=== PATIENT | female | born 2000 | race Caucasian/White ===

== ENCOUNTER 2025-04-17 00:36 | Inpatient (IN) ==
[2025-04-17] MEDS: SODIUM CHLORIDE 0.9% 1,000 ML IV ONE ×2 (01:20→01:36)
[2025-04-17 01:32] LABS: Hematocrit (blood only) 37.6 % (37.0-47.0); Hemoglobin 12.2 g/dl (12.0-16.0); Immature Granulocytes # (auto) 0.07 K/uL (0.01-0.20); Immature Granulocytes % (auto) 0.5 %; Mean Corpuscular Hemoglobin 26.2 pg (25.0-34.0); Mean Corpuscular Volume 80.9 fL (80.0-100.0); Platelet Count 335 K/uL (130-400); RDW Standard Deviation 36.7 fL (36.4-46.3); Red Blood Count 4.65 M/uL (4.20-5.40); White Blood Count 14.87 K/ul (4.8-10.8)
[2025-04-17 01:36] LABS: Appearance Urine Clear (Clear); Bacteria Urine Automated None Seen (None Seen); Cast Urine Automated 0-2 /lpf (0-2); Epithelial Cell Urine Auto 0-2 /hpf (0-2); Glucose Urine UA Negative (Negative); RBC Urine Automated 0-2 /hpf (0-2); WBC Urine Automated 0-5 /hpf (0-5)
[2025-04-17] MEDS: CEFEPIME 2000MG 2,000 MG/20 ML SYR IV STA (01:36)
[2025-04-17 01:51] LABS: Alanine Aminotransferase 20.0 U/L (7-52); Alkaline Phosphatase 132.0 U/L (34-104); Anion Gap 12.0 (3-11); Bilirubin,Total 0.7 mg/dl (0.2-1.0); Blood Urea Nitrogen 17.0 mg/dl (6-23); Calcium 9.0 mg/dl (8.6-10.3); Carbon Dioxide 22.0 mmol/L (21-32); Chloride 102.0 mmol/L (98-107); Creatinine Clr Calc Pharmacy 115.7 ml/min; Glucose 117.0 mg/dl (70-99(Fasting)); Magnesium 1.9 mg/dl (1.7-2.4); Potassium 4.0 mmol/L (3.5-5.1); Sodium 136.0 mmol/L (136-145); Total Protein 7.3 gm/dl (6.0-8.3)
--- NOTE | 2025-04-17 02:03 | XRay Report ---
EXAM: XR chest 1V portable CLINICAL HISTORY: Sepsis. TECHNIQUE: An X-ray image of the chest is obtained in AP projection. COMPARISON: No prior studies are available for comparison. FINDINGS: Pulmonary Parenchyma: Lungs are clear bilaterally. No evidence of consolidation, collapse, or focal opacities. No pulmonary nodules are identified. No evidence of pleural effusion or pleural thickening. Heart and Mediastinum: Heart size and shape are normal. No mediastinal widening or masses. No hilar or mediastinal lymphadenopathy. Bony Thorax: Bony thorax appears intact without fractures or deformities. Soft Tissues: Soft tissues overlying the chest wall are unremarkable. IMPRESSION: Normal chest X-ray. No acute cardiopulmonary abnormalities are identified. Electronically signed by Maxwell Koch 04-17-2025 02:03 AM
--- NOTE | 2025-04-17 02:06 | Emergency Department Note ---
Impression & Plan Sepsis, Retained products of conception after delivery without hemorrhage to the OR with [facility] ED Provider Note NAME: JORGE MELGAR AGE: 24 SEX: Female INFORMANT: Patient ED PROVIDER(S): Khushbu Arango DO CHIEF COMPLAINT: fever and bodyaches PLAN: Disposition: To the OR with Dr. Luis MEDICAL DECISION MAKING: This is a 24-year-old female patient who delivered a baby through her vaginal delivery on April 05 at [facility]. the baby had known transposition of great vessels diagnosed prenatally and the mother was preeclamptic. She has had a very normal course but developed a fever tonight and was directed to the hospital for evaluation by her gift shop assistant. Patient describes having some pressure in her vagina along with itchiness as she describes it over the past 3 to 4 days. She denies any cough, shortness of breath, urinary symptoms or abdominal pain. She denies any vaginal tear or episiotomy. Patient denies any pain or redness in her breasts. She is breast-feeding. She describes her vaginal discharge/bleeding as almost completely resolved at this point. Patient had a high fever at home for which she took Tylenol. A septic protocol was performed and 2 large-bore IVs were initiated. The patient was bolused with 2 L of normal saline solution as she was significantly tachycardic and appeared dehydrated. Laboratory studies revealed a white blood cell count of 14.8. H&H were stable. Glucose was 117. Lactate was 2.1 and procalcitonin was normal. Urinalysis revealed trace blood and 1+ leukocyte Estrace but was otherwise unremarkable. Chest x-ray was normal and upper respiratory bio fire testing was negative. The patient was prophylactically given IV cefepime after blood cultures were obtained. The patient's abdomen was reexamined and she remained pain-free but with concern for sepsis, she was ordered to have an ultrasound to look for retained products of conception. I also ordered a D-dimer to rule out the possibility of PE/amniotic fluid embolism as a source of her significant tachycardia and fever. This was quite elevated. The patient went for CT scan of her chest and the ultrasound. The CT was negative but the ultrasound did confirm possible retained products of conception. At that point, the patient was given IV gentamicin and IV clindamycin. Patient was noted to be group B strep negative at the time of . Patient's lactate was repeated and had come down to 1.8. Her heart rate had come down to 104. She was hemodynamically stable. I discussed the case with [facility] and they will evaluate the patient and take her to the OR. Care/management discussed with: warehouse operations manager and [facility] Triage Nursing notes: reviewed and agree With them. Vital Signs: reviewed and remarkable for tachycardia Chronic Medical/Social Conditions affecting care: -2 weeks from a vaginal delivery. Differential Diagnosis: sepsis, UTI, mastitis, retained products of conception, endometritis, amniotic fluid embolism Diagnostics, independently interpreted by me: ECG: sinus tachycardia at a rate of [address] segment elevation or signs of ischemia. Cardiac Monitoring: Sinus tachycardia at a rate of 125 Imaging studies: portable chest x-ray: No acute pulmonary infiltrates or opacities as per my independent interpretation. CTA of the chest: As per [facility] Ultrasound of the pelvis: As per [facility] HPI: 24 year old Female arrives for evaluation of Fever. patient who delivered a baby through her vaginal delivery on April 05 at [facility]. the baby had known transposition of great vessels diagnosed prenatally and the mother was preeclamptic. She has had a very normal course but developed a fever tonight and was directed to the hospital for evaluation by her gift shop assistant. Patient describes having some pressure in her vagina along with itchiness as she describes it over the past 3 to 4 days. She denies any cough, shortness of breath, urinary symptoms or abdominal pain. PAST MEDICAL HISTORY: -2 weeks - history of preeclampsia SOCIAL HISTORY: lives with her and 2 children, denies drug or alcohol use HOME MEDICATIONS: see list ALLERGIES: none VITALS: See Below PHYSICAL EXAMINATION: HEENT: Head - normocephalic and atraumatic. Pupils are equal, round, and reactive to light. Extraocular eye muscles are intact, and sclera are anicteric. Nose - Dry nasal mucosa without discharge. Mouth - extremely dry buccal mucosa. Oropharynx is nonerythematous and there is no tonsillar exudate or edema noted. Neck: Supple; no cervical lymphadenopathy or nuchal rigidity Heart: tachycardic rate and regular rhythm. There is a normal S1 and S2 with no murmurs, clicks, or gallops appreciated. Lungs: Clear to auscultation bilaterally with no wheezes, rales, or rhonchi. Abdomen: Soft, completely nontender, nondistended, with good bowel sounds. There are no palpable pulsatile masses or hepatosplenomegaly. There is no guarding, rigidity, or rebound noted. Extremities: No evidence of cyanosis, clubbing, or edema. There are easily palpable peripheral pulses. Skin: hot and dry with poor turgor and no rashes. Emergency Department treatment: quality assurance monitor, IV crystalloid-30 mL/kg, IV cefepime, IV gentamicin, IV clindamycin, IV normal saline drip Emergency Department course: The patient was evaluated in room B-8. A complete history and physical was performed. A septic protocol was performed. An order was placed for continuous cardiac monitoring. Patient was in a sinus tachycardia at a rate of 125. Twelve-lead EKG was obtained as described above. Portable chest x-ray was performed. Urine specimen was obtained. Patient was bolused with 2 L of normal saline solution. Once blood cultures were obtained. The patient was given a dose of IV cefepime. Patient went for pelvic ultrasound. Patient's abdomen was reexamined upon returning from radiology and she remains pain-free. Upon returning from radiology, additional laboratory studies were drawn and she then went for CT scan of her chest. Repeat lactic acid was obtained. Results of the ultrasound showed evidence of retained products of conception. The patient was then given IV gentamicin and clindamycin. I discussed the case with the [facility] and they will take the patient to the OR. I have personally spent greater than 95 minutes of critical care time in the direct management of this patient. This includes bedside care, interpretation of diagnostic studies, and testing, discussion with consultants, patient, and family members, and other required patient management activities. This 95 minutes is in excess of all separately billable procedures. Past Med/Surg History Problem List (Updated 04/17/25 @ 16:28 by Khushbu Arango DO) Retained products of conception after delivery without hemorrhage (Acute) Sepsis (Acute) Retained products of conception after delivery without hemorrhage Hx of pre-eclampsia in prior , currently Not immune to hepatitis B virus Early stage of Encounter for anatomic survey Supervision of normal intrauterine in multigravida Medical History History of pre-eclampsia Surgical History No pertinent past surgical history Family History Denies family history of Ovarian cancer Breast cancer Colorectal cancer Social History (Updated 09/21/24 @ 09:59 by Maria D Durham) Smoking Status: Never smoker Second Hand Exposure: No; Do You Dip or Chew Tobacco: No; Hx Alcohol Use: No Hx Substance Use: No marital status: marital status details: Nav [phone] Current Living Situation: Spouse Current Living Situation Comment: lives with spouse, daughter, 1 dog. current occupational status: employed current occupation: Home Health Nurse Allergies Allergies Allergy/AdvReac Type Severity Reaction Status Date / Time No Known Allergies Allergy Verified 04/17/25 01:10 Home Meds Home Medications Medication Instructions Recorded Confirmed docusate sodium 100 mg capsule 100 mg PO DAILY 04/17/25 04/17/25 (Colace) famotidine 20 mg tablet 20 mg PO BID PRN 04/17/25 04/17/25 HEARTBURN/INDIGESTION ibuprofen 125 mg-acetaminophen 250 1 tab PO DIRECTED PRN Pain 04/17/25 04/17/25 mg tablet (Advil Dual Action) vit no.95-ferrous 1 tab PO DAILY 04/17/25 04/17/25 fumarate 28 mg-folic acid 800 mcg tablet () Results & Data (ED) Vital Signs Vital Signs - 24 hr 04/17/25 00:42 04/17/25 00:58 04/17/25 01:03 Temperature 36.8 C Temperature Source Oral Pulse Rate 144 H 125 H 131 H Pulse Rate [Apical] Pulse Rate from SpO2 Sensor Pulse Rhythm [Apical] Pulse Strength [Apical] Respiratory Rate 19 18 Respiratory Effort / Characteristics Non-Labored Spontaneous Respiratory Depth Normal Respiratory Pattern Blood Pressure 129/83 Blood Pressure [Right Arm] Blood Pressure Mean 98 Blood Pressure Mean [Right Arm] Blood Pressure Position [Right Arm] Pulse Oximetry 99 Oxygen Delivery Method Room Air Sepsis Recent Fever Within 48 Hours Yes Sepsis New/Unexplained Change in Mental Status N/A Sepsis Action Taken by Nursing No Action Required 04/17/25 01:04 04/17/25 01:33 04/17/25 01:45 Temperature Temperature Source Pulse Rate 116 H 131 H Pulse Rate [Apical] 127 H Pulse Rate from SpO2 Sensor Pulse Rhythm [Apical] Regular Pulse Strength [Apical] Normal Respiratory Rate 17 19 15 Respiratory Effort / Characteristics Non-Labored Spontaneous Respiratory Depth Normal Respiratory Pattern Regular Blood Pressure Blood Pressure [Right Arm] 135/95 Blood Pressure Mean Blood Pressure Mean [Right Arm] 108 Blood Pressure Position [Right Arm] Sitting Pulse Oximetry 96 Oxygen Delivery Method Room Air Sepsis Recent Fever Within 48 Hours Sepsis New/Unexplained Change in Mental Status Sepsis Action Taken by Nursing 04/17/25 02:19 04/17/25 02:24 04/17/25 02:30 Temperature Temperature Source Pulse Rate 105 H Pulse Rate [Apical] 121 H Pulse Rate from SpO2 Sensor 107 H Pulse Rhythm [Apical] Regular Pulse Strength [Apical] Normal Respiratory Rate 16 18 Respiratory Effort / Characteristics Non-Labored Spontaneous Respiratory Depth Normal Respiratory Pattern Regular Blood Pressure 135/91 Blood Pressure [Right Arm] 135/91 Blood Pressure Mean 100 Blood Pressure Mean [Right Arm] 105 Blood Pressure Position [Right Arm] Sitting Pulse Oximetry 97 98 Oxygen Delivery Method Room Air Sepsis Recent Fever Within 48 Hours Sepsis New/Unexplained Change in Mental Status Sepsis Action Taken by Nursing 04/17/25 02:30 04/17/25 02:30 04/17/25 02:30 Temperature Temperature Source Pulse Rate Pulse Rate [Apical] Pulse Rate from SpO2 Sensor Pulse Rhythm [Apical] Pulse Strength [Apical] Respiratory Rate Respiratory Effort / Characteristics Respiratory Depth Respiratory Pattern Blood Pressure 119/94 119/94 119/94 Blood Pressure [Right Arm] Blood Pressure Mean 109 109 109 Blood Pressure Mean [Right Arm] Blood Pressure Position [Right Arm] Pulse Oximetry Oxygen Delivery Method Sepsis Recent Fever Within 48 Hours Sepsis New/Unexplained Change in Mental Status Sepsis Action Taken by Nursing 04/17/25 02:30 04/17/25 03:00 04/17/25 03:00 Temperature Temperature Source Pulse Rate 116 H Pulse Rate [Apical] Pulse Rate from SpO2 Sensor 122 H Pulse Rhythm [Apical] Pulse Strength [Apical] Respiratory Rate 18 Respiratory Effort / Characteristics Respiratory Depth Respiratory Pattern Blood Pressure 119/94 136/87 Blood Pressure [Right Arm] Blood Pressure Mean 109 96 Blood Pressure Mean [Right Arm] Blood Pressure Position [Right Arm] Pulse Oximetry 96 Oxygen Delivery Method Sepsis Recent Fever Within 48 Hours Sepsis New/Unexplained Change in Mental Status Sepsis Action Taken by Nursing 04/17/25 03:00 04/17/25 03:30 04/17/25 03:40 Temperature Temperature Source Pulse Rate 120 H Pulse Rate [Apical] 109 H Pulse Rate from SpO2 Sensor 120 H Pulse Rhythm [Apical] Regular Pulse Strength [Apical] Respiratory Rate 17 18 Respiratory Effort / Characteristics Non-Labored Spontaneous Respiratory Depth Normal Respiratory Pattern Regular Blood Pressure 136/87 Blood Pressure [Right Arm] 136/90 Blood Pressure Mean 96 Blood Pressure Mean [Right Arm] 105 Blood Pressure Position [Right Arm] Pulse Oximetry 97 97 Oxygen Delivery Method Room Air Sepsis Recent Fever Within 48 Hours Sepsis New/Unexplained Change in Mental Status Sepsis Action Taken by Nursing 04/17/25 03:59 04/17/25 03:59 04/17/25 03:59 Temperature Temperature Source Pulse Rate Pulse Rate [Apical] Pulse Rate from SpO2 Sensor Pulse Rhythm [Apical] Pulse Strength [Apical] Respiratory Rate Respiratory Effort / Characteristics Respiratory Depth Respiratory Pattern Blood Pressure 143/87 H 143/87 H 143/87 H Blood Pressure [Right Arm] Blood Pressure Mean 105 105 105 Blood Pressure Mean [Right Arm] Blood Pressure Position [Right Arm] Pulse Oximetry Oxygen Delivery Method Sepsis Recent Fever Within 48 Hours Sepsis New/Unexplained Change in Mental Status Sepsis Action Taken by Nursing 04/17/25 04:03 04/17/25 04:15 04/17/25 04:45 Temperature Temperature Source Pulse Rate 117 H Pulse Rate [Apical] Pulse Rate from SpO2 Sensor 116 H 98 H Pulse Rhythm [Apical] Pulse Strength [Apical] Respiratory Rate 13 Respiratory Effort / Characteristics Respiratory Depth Respiratory Pattern Blood Pressure 129/80 Blood Pressure [Right Arm] Blood Pressure Mean 93 Blood Pressure Mean [Right Arm] Blood Pressure Position [Right Arm] Pulse Oximetry 97 97 Oxygen Delivery Method Sepsis Recent Fever Within 48 Hours Sepsis New/Unexplained Change in Mental Status Sepsis Action Taken by Nursing 04/17/25 04:55 04/17/25 04:55 04/17/25 04:58 Temperature Temperature Source Pulse Rate 84 Pulse Rate [Apical] Pulse Rate from SpO2 Sensor Pulse Rhythm [Apical] Pulse Strength [Apical] Respiratory Rate Respiratory Effort / Characteristics Respiratory Depth Respiratory Pattern Blood Pressure 127/77 127/77 Blood Pressure [Right Arm] Blood Pressure Mean 91 91 Blood Pressure Mean [Right Arm] Blood Pressure Position [Right Arm] Pulse Oximetry Oxygen Delivery Method Sepsis Recent Fever Within 48 Hours Sepsis New/Unexplained Change in Mental Status Sepsis Action Taken by Nursing 04/17/25 05:00 04/17/25 05:00 04/17/25 05:00 Temperature Temperature Source Pulse Rate 109 H Pulse Rate [Apical] Pulse Rate from SpO2 Sensor 110 H Pulse Rhythm [Apical] Pulse Strength [Apical] Respiratory Rate 15 Respiratory Effort / Characteristics Non-Labored Respiratory Depth Normal Respiratory Pattern Blood Pressure 143/86 H Blood Pressure [Right Arm] Blood Pressure Mean 103 Blood Pressure Mean [Right Arm] Blood Pressure Position [Right Arm] Pulse Oximetry 98 Oxygen Delivery Method Room Air Sepsis Recent Fever Within 48 Hours Sepsis New/Unexplained Change in Mental Status Sepsis Action Taken by Nursing 04/17/25 05:00 04/17/25 05:30 04/17/25 05:30 Temperature Temperature Source Pulse Rate 97 H Pulse Rate [Apical] Pulse Rate from SpO2 Sensor Pulse Rhythm [Apical] Pulse Strength [Apical] Respiratory Rate 13 Respiratory Effort / Characteristics Respiratory Depth Respiratory Pattern Blood Pressure 143/86 H 122/76 Blood Pressure [Right Arm] Blood Pressure Mean 103 93 Blood Pressure Mean [Right Arm] Blood Pressure Position [Right Arm] Pulse Oximetry Oxygen Delivery Method Sepsis Recent Fever Within 48 Hours Sepsis New/Unexplained Change in Mental Status Sepsis Action Taken by Nursing 04/17/25 05:58 Temperature Temperature Source Pulse Rate 98 H Pulse Rate [Apical] Pulse Rate from SpO2 Sensor Pulse Rhythm [Apical] Pulse Strength [Apical] Respiratory Rate 18 Respiratory Effort / Characteristics Respiratory Depth Respiratory Pattern Blood Pressure 122/76 Blood Pressure [Right Arm] Blood Pressure Mean Blood Pressure Mean [Right Arm] Blood Pressure Position [Right Arm] Pulse Oximetry 98 Oxygen Delivery Method Room Air Sepsis Recent Fever Within 48 Hours Sepsis New/Unexplained Change in Mental Status Sepsis Action Taken by Nursing Laboratory Data 04/17/25 01:00 04/17/25 01:00 Lab Results 04/17/25 04/17/25 04/17/25 Range/Units 00:55 01:00 01:03 WBC 14.87 H (4.8-10.8) K/ul RBC 4.65 (4.20-5.40) M/uL Hgb 12.2 (12.0-16.0) g/dl Hct 37.6 (37.0-47.0) % MCV 80.9 (80.0-100.0) fL MCH 26.2 (25.0-34.0) pg MCHC 32.4 (32.0-36.0) g/dL RDW Std Deviation 36.7 (36.4-46.3) fL RDW Coeff of Ivett 12.7 (11.5-14.5) % Plt Count 335 (130-400) K/uL MPV 9.7 (9.4-12.4) fL Immature Gran % (Auto) 0.5 % Neut % (Auto) 84.9 % Lymph % (Auto) 9.0 % Meagher % (Auto) 5.3 % Eos % (Auto) 0.1 % Baso % (Auto) 0.2 % Neut # (Auto) 12.63 H (1.40-6.50) K/uL Lymph # (Auto) 1.34 (1.20-3.40) K/uL Meagher # (Auto) 0.79 H (0.11-0.59) K/uL Eos # (Auto) 0.01 (0.00-0.50) K/uL Baso # (Auto) 0.03 (0.00-0.20) K/uL Immature Gran # (Auto) 0.07 (0.01-0.20) K/uL D-Dimer 1740 H* (0-500) ug/L FEU Sodium 136 (136-145) mmol/L Potassium 4.0 (3.5-5.1) mmol/L Chloride 102 (98-107) mmol/L Carbon Dioxide 22 (21-32) mmol/L Anion Gap 12 H (3-11) BUN 17 (6-23) mg/dl Creatinine 0.75 (0.6-1.2) mg/dl Est Cr Clr Drug Dosing 115.7 ml/min eGFR 113.24 BUN/Creatinine Ratio 22.7 H (10-20) Glucose 117 H (70-99(Fasting)) mg/dl Lactate 2.1 H* (0.4-2.0) mmol/L Calcium 9.0 (8.6-10.3) mg/dl Magnesium 1.9 (1.7-2.4) mg/dl Total Bilirubin 0.7 (0.2-1.0) mg/dl Direct Bilirubin 0.1 (0-0.2) mg/dl AST 15 (13-39) U/L ALT 20 (7-52) U/L Alkaline Phosphatase 132 H (34-104) U/L Troponin I High Sens 3.3 (0-14) pg/ml Total Protein 7.3 (6.0-8.3) gm/dl Albumin 4.0 (3.4-5.0) gm/dl Procalcitonin 0.05 (0-0.5) ng/ml Urine Color Yellow Urine Appearance Clear (Clear) Urine pH 7.0 (4.5-7.5) Ur Specific [place] 1.016 (1.000-1.030) Urine Protein Negative (Negative) Urine Glucose (UA) Negative (Negative) Urine Ketones Negative (Negative) Urine Blood Trace H (Negative) Urine Nitrite Negative (Negative) Urine Bilirubin Negative (Negative) Urine Urobilinogen Negative (Negative) Ur Leukocyte Esterase 1+ H (Negative) Urine WBC (Auto) 0-5 (0-5) /hpf Urine RBC (Auto) 0-2 (0-2) /hpf U Hyaline Cast (Auto) 0-2 (0-2) /lpf U Epithel Cells (Auto) 0-2 (0-2) /hpf Urine Bacteria (Auto) None Seen (None Seen) Urine Comment Adenovirus (PCR) (NotDetected) B. pertussis DNA (PCR) (NotDetected) B.parapertussis DNA PCR (NotDetected) C. pneumoniae DNA (PCR) (NotDetected) Coronavirus OC43 (PCR) (NotDetected) Coronavirus HKU1 (PCR) (NotDetected) Coronavirus 229E (PCR) (NotDetected) SARS-CoV-2 (PCR) (NotDetected) Coronavirus NL63 (PCR) (NotDetected) Human Metapneumovir PCR (NotDetected) Influenza Type A (PCR) (NotDetected) Influenza Type B (PCR) (NotDetected) M. pneumoniae (PCR) (NotDetected) Parainfluenza 1 (PCR) (NotDetected) Parainfluenza 2 (PCR) (NotDetected) Parainfluenza 3 (PCR) (NotDetected) Parainfluenza 4 (PCR) (NotDetected) RSV (PCR) (NotDetected) Entero/Rhino (PCR) (NotDetected) 04/17/25 04/17/25 Range/Units 01:30 03:58 WBC (4.8-10.8) K/ul RBC (4.20-5.40) M/uL Hgb (12.0-16.0) g/dl Hct (37.0-47.0) % MCV (80.0-100.0) fL MCH (25.0-34.0) pg MCHC (32.0-36.0) g/dL RDW Std Deviation (36.4-46.3) fL RDW Coeff of Ivett (11.5-14.5) % Plt Count (130-400) K/uL MPV (9.4-12.4) fL Immature Gran % (Auto) % Neut % (Auto) % Lymph % (Auto) % Meagher % (Auto) % Eos % (Auto) % Baso % (Auto) % Neut # (Auto) (1.40-6.50) K/uL Lymph # (Auto) (1.20-3.40) K/uL Meagher # (Auto) (0.11-0.59) K/uL Eos # (Auto) (0.00-0.50) K/uL Baso # (Auto) (0.00-0.20) K/uL Immature Gran # (Auto) (0.01-0.20) K/uL D-Dimer (0-500) ug/L FEU Sodium (136-145) mmol/L Potassium (3.5-5.1) mmol/L Chloride (98-107) mmol/L Carbon Dioxide (21-32) mmol/L Anion Gap (3-11) BUN (6-23) mg/dl Creatinine (0.6-1.2) mg/dl Est Cr Clr Drug Dosing ml/min eGFR BUN/Creatinine Ratio (10-20) Glucose (70-99(Fasting)) mg/dl Lactate 1.8 (0.4-2.0) mmol/L Calcium (8.6-10.3) mg/dl Magnesium (1.7-2.4) mg/dl Total Bilirubin (0.2-1.0) mg/dl Direct Bilirubin (0-0.2) mg/dl AST (13-39) U/L ALT (7-52) U/L Alkaline Phosphatase (34-104) U/L Troponin I High Sens (0-14) pg/ml Total Protein (6.0-8.3) gm/dl Albumin (3.4-5.0) gm/dl Procalcitonin (0-0.5) ng/ml Urine Color Urine Appearance (Clear) Urine pH (4.5-7.5) Ur Specific [place] (1.000-1.030) Urine Protein (Negative) Urine Glucose (UA) (Negative) Urine Ketones (Negative) Urine Blood (Negative) Urine Nitrite (Negative) Urine Bilirubin (Negative) Urine Urobilinogen (Negative) Ur Leukocyte Esterase (Negative) Urine WBC (Auto) (0-5) /hpf Urine RBC (Auto) (0-2) /hpf U Hyaline Cast (Auto) (0-2) /lpf U Epithel Cells (Auto) (0-2) /hpf Urine Bacteria (Auto) (None Seen) Urine Comment Adenovirus (PCR) Not Detected (NotDetected) B. pertussis DNA (PCR) Not Detected (NotDetected) B.parapertussis DNA PCR Not Detected (NotDetected) C. pneumoniae DNA (PCR) Not Detected (NotDetected) Coronavirus OC43 (PCR) Not Detected (NotDetected) Coronavirus HKU1 (PCR) Not Detected (NotDetected) Coronavirus 229E (PCR) Not Detected (NotDetected) SARS-CoV-2 (PCR) Not Detected (NotDetected) Coronavirus NL63 (PCR) Not Detected (NotDetected) Human Metapneumovir PCR Not Detected (NotDetected) Influenza Type A (PCR) Not Detected (NotDetected) Influenza Type B (PCR) Not Detected (NotDetected) M. pneumoniae (PCR) Not Detected (NotDetected) Parainfluenza 1 (PCR) Not Detected (NotDetected) Parainfluenza 2 (PCR) Not Detected (NotDetected) Parainfluenza 3 (PCR) Not Detected (NotDetected) Parainfluenza 4 (PCR) Not Detected (NotDetected) RSV (PCR) Not Detected (NotDetected) Entero/Rhino (PCR) Not Detected (NotDetected) Administered Medications Acetaminophen (Acetaminophen 325 Mg Tab) 650 mg PO Q4H PRN PRN Reason: Pain or Fever Stop: 05/17/25 06:46 Last Admin: 04/17/25 15:10 Dose: 650 mg Documented By: SANDRA Clindamycin Phosphate (Cleocin/D5w) 900 mg in 50 mls @ 100 mls/hr IV Q8H VINCENZO; Protocol Stop: 04/27/25 13:29 Last Admin: 04/17/25 13:43 Dose: 100 mls/hr Documented By: LUIS FELIPE Ampicillin Sodium 2,000 mg/ (Sodium Chloride) 100 mls @ 200 mls/hr IV Q6H VINCENZO; Protocol Stop: 04/27/25 08:59 Last Admin: 04/17/25 15:10 Dose: 200 mls/hr Documented By: Infusion: 04/17/25 10:02 Dose: Infused Documented By: Admin: 04/17/25 09:32 Dose: 200 mls/hr Documented By: BURT Discontinued Medications Sodium Chloride (Nss) 1,000 mls @ 999 mls/hr IV .Q1H1M ONE Stop: 04/17/25 02:17 Last Infusion: 04/17/25 04:40 Dose: Infused Documented By: Admin: 04/17/25 01:20 Dose: 999 mls/hr Documented By: MALCOLM Cefepime HCl (Maxipime 2000mg) 2,000 mg in 20 mls @ 5 mls/min IV NOW STA; Protocol Stop: 04/17/25 01:34 Last Admin: 04/17/25 01:36 Dose: 5 mls/min Documented By: MALCOLM Sodium Chloride (Nss) 1,000 mls @ 999 mls/hr IV .Q1H1M ONE Stop: 04/17/25 02:32 Last Infusion: 04/17/25 03:01 Dose: Infused Documented By: Admin: 04/17/25 01:36 Dose: 999 mls/hr Documented By: MALCOLM Clindamycin Phosphate (Cleocin/D5w) 900 mg in 50 mls @ 100 mls/hr IV NOW ONE Stop: 04/17/25 04:59 Last Infusion: 04/17/25 07:07 Dose: Infused Documented By: Admin: 04/17/25 05:18 Dose: 100 mls/hr Documented By: JENNIFER Sodium Chloride (Nss) 500 mls @ 125 mls/hr IV .Q4H VINCENZO Stop: 04/17/25 08:44 Last Admin: 04/17/25 04:51 Dose: 125 mls/hr Documented By: DAYTON Ioversol (Optiray 320 125ml) 125 ml IV ONCE ONE Stop: 04/17/25 03:59 Last Admin: 04/17/25 03:59 Dose: 118 ml Documented By: ANNEMARIE Imaging Data Radiologist's Impression: Pelvis Ultrasound 04/17/25 01:31 EXAM: US pelvic complete CLINICAL HISTORY: Eval for retained products of conception. TECHNIQUE: Ultrasound examination of the pelvis was performed in real time and duplex using trans-abdominal approaches. The vascular flow was evaluated using color flow and with a spectral pattern of the flow waveform. COMPARISON: None. FINDINGS: Uterus: The uterus appears anteverted with homogeneous myometrium. It measures 12.1 x 5.3 x 10.2 cm. 2 hypoechoic intramural/ subserosal lesions are noted, measuring 1.6 x 1.3 x 1.5 cm in the posterior uterine wall and 1.8 x 1.2 x 1.8 cm in the left anterior uterine wall, respectively. Endometrial cavity; it is filled with complex fluid with heterogeneous echoes measuring 8.3 x 1.6 x 7.4 cm. No vascularity is detected on the color Doppler. Ovaries: Right ovary size: It measures 3.2 x 1.2 x 2.6 cm. Normal vascularity is noted Left ovary size: It measures 3.2 x 1.4 x 2.3 cm. Normal vascularity is noted. No ovarian cysts, solid masses, or free fluid identified. Adnexa: Adnexal structures: Normal appearance without evidence of masses or free fluid. Bladder: Urinary bladder: No evidence of bladder wall thickening, masses, or intraluminal stones. IMPRESSION: 1. Complex fluid with heterogeneous echoes measuring 8.3 x 1.6 x 7.4 cm in the endometrial cavity with no vascularity on the color Doppler, concerning for retained products of conception (RPOCs). Possible differential is blood clots. 2. 2 small intramural/subserosal fibroids in the anterior and posterior uterine wall. 3. Both ovaries are normal. RECOMMENDATIONS: Clinical correlation with symptoms, follow up and further evaluation as indicated. Electronically signed by Maxwell Koch 04-17-2025 03:59 AM Chest CTA 04/17/25 03:24 EXAM: CT angio chest PE protocol CLINICAL HISTORY: PE TECHNIQUE: Contiguous axial images were obtained from the neck base through the upper abdomen following intravenous administration of iodinated contrast material. Angiographic images were processed, 3D MIP images were acquired for interpretation. If IV contrast material had not been administered, the likelihood of detecting abnormalities relevant to the patient's condition would have been substantially decreased. Coronal and sagittal 3-D MIPs were likewise performed and indicated to increase the sensitivity of detectin diffuse clinically relevant pathology. CT scan was performed according to ALARA (as low as reasonable achievable). COMPARISON: None. FINDINGS: Adequate contrast bolus without evidence of pulmonary embolism. The central airways are patent. The lungs are clear. No pleural effusion. The heart, aorta, and pulmonary arteries are of normal size and configuration. There are no appreciable coronary artery and aortic atherosclerotic calcifications. No pericardial effusion is identified. The thyroid is unremarkable. No mediastinal, hilar, or axillary lymphadenopathy is noted. No suspicious lytic or sclerotic osseous lesions are identified. IMPRESSION: No evidence of pulmonary embolism or pulmonary disease. Electronically signed by Aj Smart 04-17-2025 04:34 AM Discharge Plan Visit Data Chief Complaint: Fever Stated Complaint: POST FLU LIKE ED Provider: Khushbu Arango Discharge Problem: Sepsis, Retained products of conception after delivery without hemorrhage Patient Disposition: Admitted As Inpatient Condition: Critical Discharge Instructions Interventions: ED Discharge Assessment Last Done: 04/17/25 05:58
[2025-04-17 02:31] LABS: Chlamydia pneumoniae PCR Not Detected (NotDetected); Coronavirus 229E PCR Not Detected (NotDetected); Coronavirus CoV-2 (COVID19)PCR Not Detected (NotDetected); Coronavirus HKU1 PCR Not Detected (NotDetected); Coronavirus NL63 PCR Not Detected (NotDetected); Coronavirus OC43PCR Not Detected (NotDetected); Human Metapneumovirus PCR Not Detected (NotDetected); Parainfluenza Virus 1 PCR Not Detected (NotDetected); Parainfluenza Virus 2 PCR Not Detected (NotDetected); Parainfluenza Virus 3 PCR Not Detected (NotDetected); Parainfluenza Virus 4 PCR Not Detected (NotDetected); Respiratory Syncytial VirusPCR Not Detected (NotDetected); Rhinovirus/Enterovirus PCR Not Detected (NotDetected)
[2025-04-17] MEDS: OPTIRAY 320 125ml IV ONE (03:59)
--- NOTE | 2025-04-17 04:00 | Ultrasound Report ---
EXAM: US pelvic complete CLINICAL HISTORY: Eval for retained products of conception. TECHNIQUE: Ultrasound examination of the pelvis was performed in real time and duplex using trans-abdominal approaches. The vascular flow was evaluated using color flow and with a spectral pattern of the flow waveform. COMPARISON: None. FINDINGS: Uterus: The uterus appears anteverted with homogeneous myometrium. It measures 12.1 x 5.3 x 10.2 cm. 2 hypoechoic intramural/ subserosal lesions are noted, measuring 1.6 x 1.3 x 1.5 cm in the posterior uterine wall and 1.8 x 1.2 x 1.8 cm in the left anterior uterine wall, respectively. Endometrial cavity; it is filled with complex fluid with heterogeneous echoes measuring 8.3 x 1.6 x 7.4 cm. No vascularity is detected on the color Doppler. Ovaries: Right ovary size: It measures 3.2 x 1.2 x 2.6 cm. Normal vascularity is noted Left ovary size: It measures 3.2 x 1.4 x 2.3 cm. Normal vascularity is noted. No ovarian cysts, solid masses, or free fluid identified. Adnexa: Adnexal structures: Normal appearance without evidence of masses or free fluid. Bladder: Urinary bladder: No evidence of bladder wall thickening, masses, or intraluminal stones. IMPRESSION: 1. Complex fluid with heterogeneous echoes measuring 8.3 x 1.6 x 7.4 cm in the endometrial cavity with no vascularity on the color Doppler, concerning for retained products of conception (RPOCs). Possible differential is blood clots. 2. 2 small intramural/subserosal fibroids in the anterior and posterior uterine wall. 3. Both ovaries are normal. RECOMMENDATIONS: Clinical correlation with symptoms, follow up and further evaluation as indicated. Electronically signed by Maxwell Koch 04-17-2025 03:59 AM
[2025-04-17] MEDS ORDERED: GENTAMICIN CONSULT ACTIVE PRN ×2 (04:30→06:47)
[2025-04-17] MEDS ORDERED: GENTAMICIN SULFATE 320 MG in DEXTROSE 5% 100 ML IV ONE (04:30)
--- NOTE | 2025-04-17 04:34 | CT Scan Report ---
EXAM: CT angio chest PE protocol CLINICAL HISTORY: PE TECHNIQUE: Contiguous axial images were obtained from the neck base through the upper abdomen following intravenous administration of iodinated contrast material. Angiographic images were processed, 3D MIP images were acquired for interpretation. If IV contrast material had not been administered, the likelihood of detecting abnormalities relevant to the patient's condition would have been substantially decreased. Coronal and sagittal 3-D MIPs were likewise performed and indicated to increase the sensitivity of detectin diffuse clinically relevant pathology. CT scan was performed according to ALARA (as low as reasonable achievable). COMPARISON: None. FINDINGS: Adequate contrast bolus without evidence of pulmonary embolism. The central airways are patent. The lungs are clear. No pleural effusion. The heart, aorta, and pulmonary arteries are of normal size and configuration. There are no appreciable coronary artery and aortic atherosclerotic calcifications. No pericardial effusion is identified. The thyroid is unremarkable. No mediastinal, hilar, or axillary lymphadenopathy is noted. No suspicious lytic or sclerotic osseous lesions are identified. IMPRESSION: No evidence of pulmonary embolism or pulmonary disease. Electronically signed by Aj Smart 04-17-2025 04:34 AM
[2025-04-17] MEDS: SODIUM CHLORIDE 0.9% 500 ML IV SCH (04:51)
--- NOTE | 2025-04-17 05:14 | Consultation ---
Date of Consultation April 17, 2025 Assessment & Plan (1) Retained products of conception after delivery without hemorrhage: Plan Given no other localizing source and concern for the possibility of developing sepsis, plan to take to the OR for D&E under ultrasound guidance. The risks of surgery were discussed with the patient including the risks of anesthesia, bleeding requiring transfusion, infection, poor wound healing, approx. 1% risk of uterine perforation with need for further surgery, hospitalization or intervention. There is also risk of injury to other organs including bowel, bladder, vessels, nerves or ureters. The other risks of any surgery were discussed including heart attack, blood clot, stroke, or . Consent reviewed and signed. Then will be admitted for IV antibiotics and close monitoring. Patient is currently hemodynamically stable. History of Present Illness Requesting Physician: Nba Reason for Consultation: suspected rpocs with infection/sepsis History of Present Illness Patient is a 24yowf s/p uncomplicated vaginal delivery at [facility] on 04/05 for preeclampsia at 36 weeks and fetus with TGV. Her pp course was uncomplicated until this evening when she developed fever and shaking chills. Noted a temp at home to 101. No other localizing symptoms. She presented to the ED where she had a very complete workup. Her temp here was 36.8. She was never hypotensive but was tachy in 140s. Dr. Arango notes that she was febrile here but this is not recorded. Notes her lactate was 2.0 initially and then 1.8 on repeat. For those reasons , she feels like she was on the verge of sepsis. Blood cultures pending. Patient required ivf hydration. WBC was 14. D-dimer elevated with a negative chest CT. Breast feeding but no breast issues. US showed the following. 1. Complex fluid with heterogeneous echoes measuring 8.3 x 1.6 x 7.4 cm in the endometrial cavity with no vascularity on the color Doppler, concerning for retained products of conception (RPOCs). Possible differential is blood clots. pictures were reviewed and this appears to be complex fluid with no blood flow to it. This is the only apparant location of possible infection. Patient notes no urinary or uri symptoms. A uri virus panel is negative. She has had blood cultures drawn and was given gent and cefipime. Allergies Allergy/AdvReac Type Severity Reaction Status Date / Time No Known Allergies Allergy Verified 04/17/25 01:10 Home Medications Medication Instructions Recorded Confirmed Type docusate sodium 100 mg capsule 100 mg PO DAILY 04/17/25 04/17/25 History (Colace) famotidine 20 mg tablet 20 mg PO BID PRN 04/17/25 04/17/25 History HEARTBURN/INDIGESTION ibuprofen 125 mg-acetaminophen 250 1 tab PO DIRECTED PRN Pain 04/17/25 04/17/25 History mg tablet (Advil Dual Action) vit no.95-ferrous 1 tab PO DAILY 04/17/25 04/17/25 History fumarate 28 mg-folic acid 800 mcg tablet () Patient History Medical History (Updated 04/17/25 @ 05:29 by Amira Luis MD, FACOG) History of pre-eclampsia Surgical History (Updated 04/17/25 @ 05:28 by Amira Luis MD, FACOG) No pertinent past surgical history Family History (Updated 07/24/24 @ 15:10 by Amira Faust LPN) Denies family history of Ovarian cancer Breast cancer Colorectal cancer Social History (Updated 09/21/24 @ 09:59 by Maria D Durham) Smoking Status: Never smoker Second Hand Exposure: No; Do You Dip or Chew Tobacco: No; Hx Alcohol Use: No Hx Substance Use: No marital status: marital status details: Nav (27) [phone] Current Living Situation: Spouse Current Living Situation Comment: lives with spouse, daughter, 1 dog. current occupational status: employed current occupation: Home Health Nurse Review of Systems Review of Systems: All systems reviewed & are unremarkable except as noted in HPI & below Physical Exam Constitutional: WD/WN, vitals as above Cardiovascular: RRR, no murmur, no edema Gastrointestinal (Abdomen): soft, nt, nd ff/minimal tenderness below umbilicus Psychiatric: A+Ox3, euthymic affect Results & Data Vital Signs (Past 12 Hours) Vital Signs Temp Pulse Pulse Resp BP BP Pulse Ox 04/17/25 04:58 84 04/17/25 03:40 109 H 18 136/90 97 04/17/25 02:24 121 H 16 135/91 97 04/17/25 01:04 127 H 17 135/95 96 04/17/25 00:58 125 H 04/17/25 00:42 36.8 C 144 H 19 129/83 99 O2 Del Method 04/17/25 04:58 04/17/25 03:40 Room Air 04/17/25 02:24 Room Air 04/17/25 01:04 Room Air 04/17/25 00:58 04/17/25 00:42 Room Air PG Care Time/CCT Total # of Minutes Spent Total Time Spent with Patient: Total time spent is greater than 50% in coordination of care (as documented) at patient's floor/unit and/or counseling patient: Coding Level of Care Code 56441 OFFICE CONSULT LVL M Diagnoses Retained products of conception after delivery without hemorrhage O73.1
[2025-04-17] MEDS: CLINDAMYCIN/D5W 900 MG/50 ML BAG IV ONE (05:18)
[2025-04-17] MEDS ORDERED: PROPOFOL IV EMULSION 10 MG/ML 20 ML VIAL IV ONE ×2 (05:45→06:32)
[2025-04-17] MEDS ORDERED: DEXAMETHASONE SOD INJ 4 MG/ML VIAL ONE (05:45)
[2025-04-17] MEDS ORDERED: ONDANSETRON INJ 2 MG/ML 2 ML VIAL ONE (05:45)
[2025-04-17] MEDS ORDERED: GENTAMICIN SULFATE 320 MG in DEXTROSE 5% 100 ML IV SCH (06:00)
[2025-04-17] MEDS ORDERED: PROMETHAZINE HCL 6.25 MG in SODIUM CHLORIDE 0.9% 50 ML IV PRN (06:20)
[2025-04-17] MEDS ORDERED: HYDROmorphone INJ 1 MG/ML SYRINGE IV PRN (06:20)
[2025-04-17] MEDS ORDERED: ATROPINE SULFATE 0.1 MG/ML 10ML SYR IV PRN (06:20)
[2025-04-17] MEDS ORDERED: ONDANSETRON INJ 2 MG/ML 2 ML VIAL IV PRN ×2 (06:20→06:47)
--- NOTE | 2025-04-17 06:20 | Anesthesiology Consultation ---
Date of Service April 17, 2025 Assessment & Plan ASA ASA2E Proposed Anesthesia Anesthesia Type: MAC Risk / Benefits Reviewed With: PT / POA / Parent / Guardian, Accepts Plan and Informed Consent Obtained History Surgery Operation Date: 04/17/25 06:30 Proposed Procedures p Dilation and Evacuation - Amira Luis MD, FACOG Height/Weight Height: 5 ft 4 in Weight: 77.7 kg Allergies Allergy/AdvReac Type Severity Reaction Status Date / Time No Known Allergies Allergy Verified 04/17/25 01:10 Medications Home Medications Medication Instructions Recorded Confirmed Last Taken docusate sodium 100 mg capsule 100 mg PO DAILY 04/17/25 04/17/25 04/16/25 (Colace) famotidine 20 mg tablet 20 mg PO BID PRN 04/17/25 04/17/25 Unknown HEARTBURN/INDIGESTION ibuprofen 125 mg-acetaminophen 250 1 tab PO DIRECTED PRN Pain 04/17/25 04/17/25 04/16/25 20:00 mg tablet (Advil Dual Action) vit no.95-ferrous 1 tab PO DAILY 04/17/25 04/17/25 04/16/25 fumarate 28 mg-folic acid 800 mcg tablet () Active Medications Generic Name Dose Route Start Last Admin Trade Name Freq PRN Reason Stop Dose Admin Sodium Chloride 500 mls @ 125 mls/hr 04/17/25 04:45 04/17/25 04:51 Nss IV 04/17/25 08:44 125 mls/hr .Q4H VINCENZO Administration NPO Date Last Intake of Fluids: 04/17/25 Time Last Intake of Fluids: 05:00 Last Intake of Fluids Comment: sips of water Date Last Intake of Solids: 04/16/25 Time Last Intake of Solids: 18:00 Past Medical History Medical History History of pre-eclampsia Exercise / Class Metabolic Activity II 4-5 Yardwork/Stairs/Walk up hill Past Family History Family History Denies family history of Ovarian cancer Breast cancer Colorectal cancer Past Surgical History Surgical History No pertinent past surgical history Past Anesthesia History No Hx of Anesthesia Complications and No Family Hx of Anesthesia Complications History of PONV No Hx of PONV and No Hx of Motion Sickness Social History Smoking Status: Never smoker Do You Dip or Chew Tobacco: No Hx Alcohol Use: No Hx Substance Use: No Review of Systems denies fever/cough/ colds/ chest pain/ SOB/ AMBER denies AMBER Physical Exam Vital Signs Last Vital Signs Temp 36.8 C 04/17/25 00:42 Pulse 98 H 04/17/25 05:58 Resp 18 04/17/25 05:58 BP 122/76 04/17/25 05:58 Pulse Ox 98 04/17/25 05:58 O2 Del Method Room Air 04/17/25 05:58 ENMT Mouth: no TMJ abnormality and no dentition abnormality Thyromental Distance: > or= 3.5 Finger Breadths Mallampati Class: II Neck neck extension not limited Respiratory normal respiratory effort; no respiratory distress Auscultation: lungs clear to auscultation bilaterally Cardiovascular Rate/Rhythm: regular rate and regular rhythm Neurologic moves all extremities Psychiatric Orientation: alert and oriented x 3 Testing Laboratory Results 04/17/25 01:00 04/17/25 01:00 Urine Color Yellow 04/17/25 00:55 Urine Appearance Clear (Clear) 04/17/25 00:55 Urine pH 7.0 (4.5-7.5) 04/17/25 00:55 Ur Specific [place] 1.016 (1.000-1.030) 04/17/25 00:55 Urine Protein Negative (Negative) 04/17/25 00:55 Urine Glucose (UA) Negative (Negative) 04/17/25 00:55 Urine Ketones Negative (Negative) 04/17/25 00:55 Urine Nitrite Negative (Negative) 04/17/25 00:55 Ur Leukocyte Esterase 1+ (Negative) H 04/17/25 00:55 Urine WBC (Auto) 0-5 /hpf (0-5) 04/17/25 00:55 Urine RBC (Auto) 0-2 /hpf (0-2) 04/17/25 00:55 U Hyaline Cast (Auto) 0-2 /lpf (0-2) 04/17/25 00:55 U Epithel Cells (Auto) 0-2 /hpf (0-2) 04/17/25 00:55 Urine Bacteria (Auto) None Seen (None Seen) 04/17/25 00:55
[2025-04-17] MEDS ORDERED: METHYLERGONOVINE MALEATE 0.2 MG/ML AMP ONE (06:37)
[2025-04-17] MEDS ORDERED: FAMOTIDINE/PF 20 MG/2 ML VIAL IV ONE (06:37)
--- NOTE | 2025-04-17 07:23 | Operative Report ---
PG Post Operative Report Pre & Post Diagnosis Operation Date: 04/17/25 06:30 Pre-Op Diagnosis: Retained products of conception after delivery without hemorrhage Post-Op Diagnosis: Retained products of conception after delivery without hemorrhage I identified the patient and participated in the time-out.: Yes Procedure Operation Date: 04/17/25 06:30 Actual Procedures p Dilation and Evacuation, Ultrasound Guided - Amira Luis MD, FACOG Surgeon Amira Luis MD, FACOG Administrative Office Clerk none Estimated Blood Loss 50 Findings Consistent with Post-Op Diagnosis uterus sounded to 10cm, pocs and blood removed from the uterus. Specimens pocs Drains none Anesthesia Type General Complications none Disposition Accompanied Patient To Recovery: No Disposition: Recovery Room Indications 24yowf w/p vaginal delivery on 04/05 with fever and probable retained pocs Description of Procedure The patient was taken to the operating room where she was identified verbally and by bracelet. She placed on the operating table where general anesthetic was induced without difficulty. The patient was placed in the dorsal lithotomy position in candy cane stirrups and prepped and draped in the normal sterile fashion. A time-out was held noting the correct patient, position, procedure, no need for antibiotics. There were no concerns. An exam under anesthesia was done with the above noted findings. The bladder was drained of urine and a weighted speculum was placed in the vagina. The anterior lip of the cervix was grasped with a single-toothed tenaculum. The uterus sounded to 10cm. The cervix was dilated to a # 23 Hegar dilator. A 8mm suction curette was placed into the uterus and under ultrasound guidance pocs and blood were removed from the uterus. A curettage was performed in 365 degrees with no further pocs removed. The procedure was terminated. The patient was given IM methergine. All instruments were removed from the vagina. All sponge, lap and needle counts were correct times two. The patient was taken to the recovery room instable condition. I attest to the content of the Intraoperative Record and any orders documented therein. Any exceptions are noted below.
--- NOTE | 2025-04-17 08:29 | Anesthesiology Progress Note ---
Date of Service April 17, 2025 Anesthesia Post Procedure Vital Signs Vital Signs: Temp Pulse Pulse Resp BP BP Pulse Ox 04/17/25 08:05 97.9 F 80 16 137/89 95 04/17/25 07:50 97.9 F 81 15 127/84 95 04/17/25 07:40 97.9 F 97 H 20 129/89 95 04/17/25 07:30 97.9 F 94 H 20 129/86 95 04/17/25 07:20 98.2 F 92 H 20 123/82 95 04/17/25 07:10 98.2 F 90 17 123/80 95 04/17/25 07:00 98.2 F 90 16 126/82 97 04/17/25 06:54 98.4 F 89 16 119/78 99 04/17/25 05:58 98 H 18 122/76 98 04/17/25 05:30 97 H 13 04/17/25 05:30 122/76 04/17/25 05:00 143/86 H 04/17/25 05:00 143/86 H 04/17/25 05:00 109 H 15 98 04/17/25 05:00 04/17/25 04:58 84 04/17/25 04:55 127/77 04/17/25 04:55 127/77 04/17/25 04:45 97 04/17/25 04:15 129/80 04/17/25 04:03 117 H 13 97 04/17/25 03:59 143/87 H 04/17/25 03:59 143/87 H 04/17/25 03:59 143/87 H 04/17/25 03:40 109 H 18 136/90 97 04/17/25 03:30 120 H 17 97 04/17/25 03:00 136/87 04/17/25 03:00 136/87 04/17/25 03:00 116 H 18 96 04/17/25 02:30 119/94 04/17/25 02:30 119/94 04/17/25 02:30 119/94 04/17/25 02:30 119/94 04/17/25 02:30 105 H 18 98 04/17/25 02:24 121 H 16 135/91 97 04/17/25 02:19 135/91 04/17/25 01:45 131 H 15 04/17/25 01:33 116 H 19 04/17/25 01:04 127 H 17 135/95 96 04/17/25 01:03 131 H 18 04/17/25 00:58 125 H 04/17/25 00:42 98.2 F 144 H 19 129/83 99 O2 Del Method O2 Flow Rate 04/17/25 08:05 Room Air 04/17/25 07:50 Room Air 04/17/25 07:40 Room Air 04/17/25 07:30 Room Air 04/17/25 07:20 Room Air 04/17/25 07:10 Room Air 04/17/25 07:00 Oxymask 2 04/17/25 06:54 Oxymask 2 04/17/25 05:58 Room Air 04/17/25 05:30 04/17/25 05:30 04/17/25 05:00 04/17/25 05:00 04/17/25 05:00 04/17/25 05:00 Room Air 04/17/25 04:58 04/17/25 04:55 04/17/25 04:55 04/17/25 04:45 04/17/25 04:15 04/17/25 04:03 04/17/25 03:59 04/17/25 03:59 04/17/25 03:59 04/17/25 03:40 Room Air 04/17/25 03:30 04/17/25 03:00 04/17/25 03:00 04/17/25 03:00 04/17/25 02:30 04/17/25 02:30 04/17/25 02:30 04/17/25 02:30 04/17/25 02:30 04/17/25 02:24 Room Air 04/17/25 02:19 04/17/25 01:45 04/17/25 01:33 04/17/25 01:04 Room Air 04/17/25 01:03 04/17/25 00:58 04/17/25 00:42 Room Air Pain Intensity Back: Pain Intensity: 0 Transfer of Care Handoff Completed per policy Notes Mental Status: alert / awake / arousable and participated in evaluation Patient Amnestic to Procedure: Yes Nausea / Vomiting: adequately controlled Pain: adequately controlled Airway Patency, RR, SpO2: stable & adequate BP & HR: stable & adequate Hydration State: stable & adequate Anesthetic Complications: no major complications apparent and Pt Satisfied with anesthetic care
[2025-04-17] MEDS: AMPICILLIN 2,000 MG in SODIUM CHLOR 0.9% MINI-B 100 ML IV SCH (09:32)
--- NOTE | 2025-04-17 11:05 | Pharmacy Report ---
Pharmacy PK ABX Note - Date of Service April 17, 2025 - Assessment and Plan Assessment 24 year old F receiving gentamicin/ampicillin/clindamycin for treatment of retained products of conception after delivery. Pertinent microbiologic data includes: blood cultures pending. Went to OR this AM for D&E. Gentamicin dose this AM not documented on, discussed with ANA LUISA Long, bag is with patient and was given. Will get level if gentamicin continues beyond 72 hours per pharmacokinetic protocol. Day # 1 of antimicrobial therapy. Plan Vancomycin * Loading dose: 320 mg IV x 1 * Maintenance dose: 380 mg IV every 24 hours (based on actual body weight for intrapartum and dosing per PK protocol) * Regimen is predicted to achieve target AUC/DEEPTI of 400-600 mg/L.hr * Random level to be ordered if continued beyond 72 hours. Pharmacy will continue to follow and will adjust dose/frequency as necessary. Thank you. Pharmacy has transitioned to AUC monitoring for vancomycin. AUC/DEEPTI is the preferred PK/PD target and is associated with decreased risk of nephrotoxicity compared to traditional trough targets.
[2025-04-17] MEDS: CLINDAMYCIN/D5W 900 MG/50 ML BAG IV SCH (13:43)
--- NOTE | 2025-04-17 15:09 | Electrocardiogram Report ---
Test Reason : Blood Pressure : */* mmHG Vent. Rate : 125 BPM Atrial Rate : 125 BPM P-R Int : 140 ms QRS Dur : 70 ms QT Int : 298 ms P-R-T Axes : 64 78 57 degrees QTcB Int : 430 ms Sinus tachycardia Otherwise normal ECG No previous ECGs available Confirmed by Speedy Jones ([id number]) on 04/17/2025 3:09:21 PM Referred By: REFERRED SELF Confirmed By: Speedy Jones
[2025-04-17] MEDS: ACETAMINOPHEN 325 MG TAB PO PRN (15:10)
[2025-04-18 03:05] VITALS: RESP 18; O2SAT 96
[2025-04-18] MEDS: GENTAMICIN SULFATE 380 MG in DEXTROSE 5% 100 ML IV SCH (06:00)
[2025-04-18 06:31] LABS: Hematocrit (blood only) 33.0 % (37.0-47.0); Hemoglobin 10.4 g/dl (12.0-16.0); Immature Granulocytes # (auto) 0.08 K/uL (0.01-0.20); Immature Granulocytes % (auto) 0.7 %; Mean Corpuscular Hemoglobin 26.4 pg (25.0-34.0); Mean Corpuscular Volume 83.8 fL (80.0-100.0); Platelet Count 302 K/uL (130-400); RDW Standard Deviation 38.7 fL (36.4-46.3); Red Blood Count 3.94 M/uL (4.20-5.40); White Blood Count 11.22 K/ul (4.8-10.8)
[2025-04-18 06:55] LABS: Alanine Aminotransferase 14.0 U/L (7-52); Albumin Globulin Ratio 1.3 (0.9-2); Alkaline Phosphatase 94.0 U/L (34-104); Anion Gap 9.0 (3-11); Bilirubin,Total 0.4 mg/dl (0.2-1.0); Blood Urea Nitrogen 10.0 mg/dl (6-23); Calcium 8.3 mg/dl (8.6-10.3); Carbon Dioxide 25.0 mmol/L (21-32); Chloride 106.0 mmol/L (98-107); Creatinine Clr Calc Pharmacy 129.5 ml/min; Globulin 2.7 gm/dl (2.5-4.0); Glucose 100.0 mg/dl (70-99(Fasting)); Potassium 3.8 mmol/L (3.5-5.1); Sodium 140.0 mmol/L (136-145); Total Protein 6.1 gm/dl (6.0-8.3)
--- NOTE | 2025-04-18 08:02 | Obstetrical Progress Note ---
Date of Service April 18, 2025 Assessment & Plan (1) Retained products of conception after delivery without hemorrhage: Plan: Clinically improved after removal of suspected RPOC, afebrile x24hr. Will d/c to home on Augmentin. Planning 6wk ppx follow up locally rather than traveling back to [facility] per pt preference. Admission and Anticipated Discharge Date Admission Date: April 17, 2025 Subjective Patient feeling well this morning - no more chills, aches, feverish feelings. Abdominal cramping much improved. Denies significant lochia. Physical Exam Physical Exam: Gen: NAD, moving actively and chatty, lying supine. Cor: No pedal edema, reg HR Resp: no distress, normal O2 sat Abd: soft, postgravid, fundus firm and low, nttp Results & Data Vital Signs (Past 12 Hours) Vital Signs Temp Pulse Resp BP Pulse Ox O2 Del Method 04/18/25 03:03 98.2 F 98 H 18 112/74 96 Room Air 04/17/25 23:15 98.1 F 78 16 102/70 95 Room Air PG Care Time/CCT Total # of Minutes Spent Total Time Spent with Patient: Total time spent is greater than 50% in coordination of care (as documented) at patient's floor/unit and/or counseling patient: Coding Level of Care Code 80702 SUB INP/OBS CARE 2/35MIN Diagnoses Retained products of conception after delivery without hemorrhage O73.1
[2025-04-18 08:05] VITALS: BP 122/86; TEMP 97.5
[2025-04-18 08:38] VITALS: PULSE 80
--- NOTE | 2025-04-20 08:17 | Discharge Summary ---
Date of Service April 20, 2025 Admission HPI Per Admitting Provider Patient is a 24yowf s/p uncomplicated vaginal delivery at [facility] on 04/05 for preeclampsia at 36 weeks and fetus with TGV. Her pp course was uncomplicated until this evening when she developed fever and shaking chills. Noted a temp at home to 101. No other localizing symptoms. She presented to the ED where she had a very complete workup. Her temp here was 36.8. She was never hypotensive but was tachy in 140s. Dr. Arango notes that she was febrile here but this is not recorded. Notes her lactate was 2.0 initially and then 1.8 on repeat. For those reasons , she feels like she was on the verge of sepsis. Blood cultures pending. Patient required ivf hydration. WBC was 14. D-dimer elevated with a negative chest CT. Breast feeding but no breast issues. US showed the following. 1. Complex fluid with heterogeneous echoes measuring 8.3 x 1.6 x 7.4 cm in the endometrial cavity with no vascularity on the color Doppler, concerning for retained products of conception (RPOCs). Possible differential is blood clots. pictures were reviewed and this appears to be complex fluid with no blood flow to it. This is the only apparant location of possible infection. Patient notes no urinary or uri symptoms. A uri virus panel is negative. She has had blood cultures drawn and was given gent and cefipime. Discharge Data Consultations 04/17/25 04:56 ED Decision to Admit Stat Procedures Performed Operation Date: 04/17/25 06:30 Actual Procedures p Dilation and Evacuation, Ultrasound Guided - Amira Luis MD, [facility] Hospital Course (1) Retained products of conception after delivery without hemorrhage: (2) Sepsis: Plan The patient underwent a D&E for retained products of conception. She was then placed on amp/gent/clinda IV. the patient remained afebrile with stable vital signs. She was d/c after 24 hours of IV antibiotics in stable condition. Her wbc was nax of 14 and down to 11 on day of d/c. She was d/c home on oral anti biotics with f/u in the office scheduled. Coding Level of Care Code None Diagnoses Retained products of conception after delivery without hemorrhage O73.1 Sepsis A41.9
== END 2025-04-18 09:39 | disposition home or self-care (01) | DRG 769 ==
LOC: ED 00:36 → OR 06:20 → 4E1 06:20